=== PATIENT | female | born 1965 | race Caucasian/White ===

== ENCOUNTER → 2016-12-18 | Outpatient (CLI) | payer OTHER ==
[~2016-12-18] MED LIST: FAMO1TAB25 PO; FLON1SPR; GLUC1CAP9 PO; MULT1TAB8 PO; MULTTAB25 PO
--- NOTE | 2016-12-18 09:41 | REP ---
PELVIC ULTRASOUND: Real-time sonographic evaluation of the pelvis performed utilizing transabdominal and endovaginal technique. The bladder measures 10.1 x 10.2 x 7.1 cm. The uterus measures 9.5 x 3.76 x 5.4 cm. Endometrial thickness is 3 mm. Nabothian cysts are seen in the region of the cervix. There are fibroids present in the myometrium, a fibroid anteriorly measures 1.1 x 0.7 x 0.9 cm, a posterior left fibroid measures 1.6 x 1.2 x 1.1 cm, and a fundal fibroid measures 1.5 x 2.4 x 2.3. Right ovary measures 1.9 x 1.8 x 1.5 cm. There is a large cyst containing low level echoes projecting from the right ovary measuring 15.7 x 10.1 x 17.1 cm. The left ovary is normal in size and echotexture measuring 1.9 x 1.1 x 1.6 cm. No free fluid is seen. IMPRESSION: Large right ovarian cyst, maximum diameter is approximately 17 cm. Low level echoes are seen within the cyst. Uterine fibroids are present as discussed above.
== END ==
LOC: M WHC 07:47
PROVIDERS: ATTEND Nurse Practitioner Women's Health
DX: N83.201 Unspecified ovarian cyst, right side (principal); Z78.0 Asymptomatic menopausal state; R14.0 Abdominal distension (gaseous)

== ENCOUNTER 2016-12-26 13:45 | Day surgery (SDC) | payer OTHER ==
[~2016-12-26] VITALS: Ht 162.6 cm; Wt 78.9 kg
[~2016-12-26 13:45] MED LIST changes: +KETOROLAC 60 MG/2 ML VIAL (J1885) As Ordered ONE; +METOCLOPRAMIDE INJ 10MG/2ML VIAL (J2765) As Ordered ONE; +MIDAZOLAM INJ 2 MG/2 ML VIAL (J2250) As Ordered ONE; +ONDANSETRON 4MG/2ML VIAL (J2405) As Ordered ONE; +PROPOFOL 200 MG/20 ML VIAL As Ordered ONE; +ROCURONIUM BROMIDE 50 MG/5 ML VIAL/SYRINGE As Ordered ONE; +dexameTHASONE 4 MG/ML 1ML VIAL (J1100) As Ordered ONE; +fentaNYL 100 MCG/2 ML INJECTION (J3010) As Ordered ONE
[2016-12-26] MEDS ORDERED: LR 1,000 ML IV ONE (14:00)
[2016-12-26 14:06] LABS: MEAN CORPUSCULAR HEMOGLOBIN 31.5 pg (27.0-33.0); MEAN CORPUSCULAR HGB CONC 34.5 g/dl (32.0-36.5); MEAN CORPUSCULAR VOLUME 91.4 fl (80.0-96.0); RED CELL DISTRIBUTION WIDTH 12.1 % (11.5-14.5); WHITE BLOOD COUNT 9.1 10^3/uL (4.0-10.0)
[2016-12-26] MEDS ORDERED: fentaNYL 100 MCG/2 ML INJECTION (J3010) As Ordered ONE (14:40)
[2016-12-26] MEDS ORDERED: PERCOCET 5MG/325MG TAB As Ordered ONE (15:53)
[2016-12-26] MEDS: PERCOCET 5MG/325MG TAB PO PRN ×2 (15:55→16:50)
[2016-12-26] MEDS ORDERED: HYDROmorphone HCL 1 MG/ML SYRINGE (J1170) As Ordered ONE (15:55)
[2016-12-26] MEDS: HYDROmorphone HCL 1 MG/ML SYRINGE (J1170) IV PRN ×5 (15:58→16:41)
[2016-12-26] MEDS ORDERED: LR 1,000 ML IV SCH ×2 (16:00→16:15)
[2016-12-26] MEDS ORDERED: fentaNYL 100 MCG/2 ML INJECTION (J3010) IV PRN (16:00)
[2016-12-26] MEDS ORDERED: ONDANSETRON 4MG/2ML VIAL (J2405) IV PRN (16:00)
[2016-12-26] MEDS ORDERED: IBUPROFEN 600 MG TAB PO PRN (16:15)
[2016-12-26] MEDS ORDERED: NORCO, ANEXSIA 5/325MG TABLET (HYDROcodone/ACETAMINOPHEN) PO PRN (16:15)
[2016-12-26 17:50] VITALS: BP 129/75
--- NOTE | 2016-12-27 09:35 | RO ---
DATE OF PROCEDURE: 12/26/2016 PREOPERATIVE DIAGNOSIS: Large right ovarian cyst. POSTOPERATIVE DIAGNOSIS: Large right ovarian cyst. PROCEDURE: SURGEON: Dr. Iris Khan FLUID PUMP OPERATOR: ANESTHESIA: GETA BRIEF DESCRIPTION OF PROCEDURE AND FINDINGS: There were some minor adhesions and a small cyst on the left side, but the one on the right side extended above the umbilicus a couple centimeters above. So, as had been discussed preoperatively, she was brought to the operating room (OR). We placed the uterine manipulator, drained the bladder, the type of stewart set up that had the ability to backflow and fill with that Stewart, and then turned our attention to the umbilicus. Her previous vertical subumbilical tubal ligation scar was used, and we used that to dissect down to the rectus fascia, which was elevated with Jimenez clamps, transversely incised with care and the peritoneum entered under direct visualization. We put #0 Vicryl retention sutures in the fascia, but also left the Jimenez on in one spot so that we could have a little bit more room at the fascia but not have too much risk of leakage. We put the Serge in place and we insufflated with CO2. After adequate insufflation, the peritoneal cavity was visualized. The cyst was visible at the umbilicus before we even placed the scope and extended above the umbilicus. We could with a smooth manipulator depress the sides of it consistent with its cystic appearance by CT and sono. There were some minor pelvic adhesions of the ovary to the uterus and to the area of her right tubal ligation scarring, and some minor right-sided adhesions that of course are not from gallbladder because she still has a gallbladder, but are higher than is typically seen with appendix. So I am not sure what those adhesions are actually from, but they were not distorting the intestine over much and they were just left in place. We went ahead using the operative port in the scope and placed the aspirating needle and photos were taken to document this. We sucked out about 1400 mL of fluid from the cyst. After which, it was mostly but not entirely compressed, still when we removed it had another 100 mL left in it, and having deflated it, we were then able to see the pelvis. We could see that there were some small cysts on the left ovary and see the adhesions of the ovary to the uterus and to the previous tubal ligation dissection. We were also able to see the infundibulopelvic ligament, which had been stretched out by this so we were able to place a right-sided 5mm port and use the Enseal cauterizing bipolar dissector to cauterize and then transect the infundibulopelvic ligament of the right ovary and carefully come through the mesentery of that right ovary and tube and remove them from the patient. We used graspers through the scope to elevate the deflated ovarian wall so that we could this. We then proceeded to use of course the uterine manipulator and the grasper to elevate the left ovary and again, cauterized and transected the infundibulopelvic ligament and then the utero-ovarian suspensory ligament and the proximal portion of the left tube so that we had done the left salpingo-oophorectomy as well. When both ovaries were , we did have a little bit of oozing on the right side and we had to get that ovary out of the way in order to get good control of that, and of course we had some adhesions of that ovary to the uterus but the area of dissection free of those adhesions did not have any significant bleeding, and we had the bleeding of the other dissection under control. With careful attention on the right side we had both sides showing good hemostasis and lack of injury to the bowel or urethers. Used the suction mexican food maker hand to confirm this. We then switched to a 5 mm scope in the right lower quadrant port and placed the Endo Catch bag into the pelvis. We scooped up first the left ovary and tube that was relatively small and easy to scoop up, and then placed the majority of that right ovary and tube into the bag but a little bit was still tipping over the edge because it just would not fit in the bag, and then we clint this up to the umbilicus where we already had a little bit bigger incision than we sometimes do but still a laparoscopy wound at the umbilicus at that previous tubal site. We were able to bring the ovary up enough so that we could use a migel to grasp and bring the leading edge of that ovary out and then close the bag and bring the bag out through the wound, and then carefully deliver the ovary through the wound, again now back in the bag and then delivered the left ovary and tube as well in the bag intact. So we were able to remove both ovaries and tubes and approximately 1500 mL of cyst fluid. We then evaluated the pelvis and there was no evidence of significant bleeding or difficulty in that regard. We closed the fascial wound at the umbilicus with #0 Vicryl at the fascia and then closed the skin with #3-0 Vicryl in a subcuticular stitch, and the right lower quadrant 5 mm port was closed at the skin with #3-0 Vicryl in a subcuticular stitch as well. Dry sterile dressing was then applied. Estimated blood loss for the procedure maybe 35 mL. Fluid replacement was crystalloid. Specimens: right and left ovaries and fallopian tubes and approx 1500cc cyst fluid. Complications: None. Condition and Disposition: Jessika tolerated the procedure well and was recovering in the recovery room in good condition. MEHRAN
== END 2016-12-26 18:21 | disposition home or self-care (01) ==
LOC: M SDC 13:45
PROVIDERS: ATTEND Obstetrics & Gynecology
DX: N83.201 Unspecified ovarian cyst, right side (principal); K21.9 Gastro-esophageal reflux disease without esophagitis; E78.00 Pure hypercholesterolemia, unspecified; M12.9 Arthropathy, unspecified; M51.9 Unspecified thoracic, thoracolumbar and lumbosacral intervertebral disc disorder; Z88.8 Allergy status to other drugs, medicaments and biological substances; Z79.899 Other long term (current) drug therapy; Z98.51 Tubal ligation status; Z72.0 Tobacco use